=== PATIENT | female | born 1975 | race Caucasian/White ===

== ENCOUNTER 2018-07-17 16:10 | Inpatient (IN) | payer SELFPAY ==
[~2018-07-17] VITALS: Ht 165.1 cm; Wt 107.7 kg
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
--- NOTE | 2018-07-17 16:43 | NUR ---
ERP DR. MOODY AT BEDSIDE.
--- NOTE | 2018-07-17 17:04 | NUR ---
PT RESTING ON GURNEY. NADN. ROBLERO.
--- NOTE | 2018-07-17 17:44 | NUR ---
REPORT GIVEN TO ANTONIO DON RN. ALL QUESTIONS ANSWERED. AWAITING PT TRANSPORT.
[2018-07-17] MEDS ORDERED: LABETALOL 5MG/ML, 20ML IVPush PRN (18:00)
[2018-07-17] MEDS ORDERED: ONDANSETRON 2MG/ML, 2ML IVPush PRN (18:00)
[2018-07-17] MEDS ORDERED: LORazepam 2 MG/ML, 1ML IV PRN ×3 (18:00)
[2018-07-17] MEDS ORDERED: morphine SULFATE 10 MG/ML, 1ML IVPush PRN (18:00)
[2018-07-17] MEDS ORDERED: LORazepam 1MG TABLET PO PRN ×3 (18:00)
[2018-07-17] MEDS ORDERED: LORazepam 0.5MG TABLET PO PRN (18:00)
--- NOTE | 2018-07-17 18:21 | NUR ---
PT RESTING ON FERNANDO. VSS. AWARE OF POC FOR ADMIT.
[2018-07-17 18:41] LABS: BASOPHILS # (AUTO) 0.18 x10^3/uL (0-0.1); BASOPHILS % (AUTO) 2 % (0-1); EOSINOPHILS # (AUTO) 0.06 x10^3/uL (0-0.4); EOSINOPHILS % (AUTO) 1 % (1-7); LYMPHOCYTES # (AUTO) 1.51 x10^3/uL (1-3.4); LYMPHOCYTES % (AUTO) 16 % (22-44); MD NO; MEAN CORPUSCULAR HEMOGLOBIN 35.8 pg (27.0-34.8); MEAN CORPUSCULAR HGB CONC 34.7 g/dL (32.4-35.8); MEAN CORPUSCULAR VOLUME 103.2 fL (80-100); MEAN PLATELET VOLUME 8.3 fL (7.4-10.4); MONOCYTES % (AUTO) 9 % (2-9); NEUTROPHILS # (AUTO) 6.74 x10^3/uL (1.8-6.8); NEUTROPHILS % (AUTO) 73 % (42-75); PLATELET COUNT 193 x10^3/uL (130-400); RED CELL DISTRIBUTION WIDTH 16.3 % (9.6-15.2)
[2018-07-17 18:45] VITALS: BP 121/81
[2018-07-17 19:23] LABS: HCG UR SG 1.083 (1.003-1.030)
[2018-07-17] MEDS: OXYcodone IR 5MG TABLET PO PRN (20:42)
[2018-07-17] MEDS: THIAMINE 100MG TABLET PO SCH (20:43)
[2018-07-18 02:25] VITALS: BP 108/68
[2018-07-18] MEDS: OXYcodone IR 5MG TABLET PO PRN ×3 (03:58→21:13)
[2018-07-18 05:06] LABS: ALANINE AMINOTRANSFERASE 64 U/L (12-78); ANION GAP 9 mmol/L (5-15); CALCIUM 7.7 mg/dL (8.5-10.1); CHLORIDE 99 mmol/L (98-107)
[2018-07-18 05:09] LABS: ALKALINE PHOSPHATASE 295 U/L (45-117); BILIRUBIN,TOTAL 11.5 mg/dL (0.2-1.0); CREATININE 0.59 mg/dL (0.55-1.02); TOTAL PROTEIN 5.3 g/dL (6.4-8.2)
[2018-07-18 05:10] LABS: BASOPHILS # (AUTO) 0.03 x10^3/uL (0-0.1); BASOPHILS % (AUTO) 0 % (0-1); EOSINOPHILS # (AUTO) 0.16 x10^3/uL (0-0.4); EOSINOPHILS % (AUTO) 2 % (1-7); LYMPHOCYTES # (AUTO) 1.68 x10^3/uL (1-3.4); LYMPHOCYTES % (AUTO) 23 % (22-44); MD NO; MEAN CORPUSCULAR HGB CONC 34.1 g/dL (32.4-35.8); MEAN CORPUSCULAR VOLUME 102.6 fL (80-100); MEAN PLATELET VOLUME 8.4 fL (7.4-10.4); MONOCYTES # (AUTO) 0.69 x10^3/uL (0.2-0.8); MONOCYTES % (AUTO) 9 % (2-9); NEUTROPHILS # (AUTO) 4.91 x10^3/uL (1.8-6.8); NEUTROPHILS % (AUTO) 66 % (42-75); PLATELET COUNT 175 x10^3/uL (130-400); RED BLOOD COUNT 3.65 x10^6/uL (3.82-5.3); RED CELL DISTRIBUTION WIDTH 16.1 % (9.6-15.2)
[2018-07-18] MEDS ORDERED: POTASSIUM CHLORIDE 40 MEQ in SODIUM CHLORIDE 0.9% 500 ML IV ONE (07:00)
[2018-07-18 07:01] VITALS: BP 106/69
[2018-07-18] MEDS: THIAMINE 100MG TABLET PO SCH ×2 (09:57→21:13)
[2018-07-18] MEDS: MULTIVITAMIN 1 TABLET PO SCH (09:57)
[2018-07-18] MEDS: FOLIC ACID 1 MG TABLET PO SCH (09:57)
[2018-07-18 13:53] VITALS: BP 114/75
[2018-07-18 19:25] VITALS: BP 107/70
[2018-07-19 00:18] VITALS: BP 100/64
[2018-07-19 05:51] LABS: ALBUMIN 2.1 g/dL (3.4-5.0); CHLORIDE 100 mmol/L (98-107)
[2018-07-19 05:55] LABS: ALANINE AMINOTRANSFERASE 58 U/L (12-78); ALKALINE PHOSPHATASE 285 U/L (45-117); ANION GAP 5 mmol/L (5-15); BILIRUBIN,TOTAL 11.5 mg/dL (0.2-1.0); CALCIUM 7.6 mg/dL (8.5-10.1); CREATININE 0.48 mg/dL (0.55-1.02); TOTAL PROTEIN 5.5 g/dL (6.4-8.2)
[2018-07-19] MEDS: MULTIVITAMIN 1 TABLET PO SCH (08:42)
[2018-07-19] MEDS: FOLIC ACID 1 MG TABLET PO SCH (08:42)
[2018-07-19] MEDS: THIAMINE 100MG TABLET PO SCH ×2 (08:42→21:02)
[2018-07-19 15:04] VITALS: BP 121/77
[2018-07-19 18:25] VITALS: BP 129/76
[2018-07-19] MEDS ORDERED: SODIUM CHLORIDE 1 GM TABLET PO SCH (21:00)
[2018-07-19] MEDS: OXYcodone IR 5MG TABLET PO PRN (21:02)
[2018-07-20 00:15] VITALS: BP 118/73
[2018-07-20 05:34] LABS: ALBUMIN 2.1 g/dL (3.4-5.0); ANION GAP 8 mmol/L (5-15); CALCIUM 7.9 mg/dL (8.5-10.1); CHLORIDE 99 mmol/L (98-107)
[2018-07-20 05:38] LABS: ALANINE AMINOTRANSFERASE 61 U/L (12-78); ALKALINE PHOSPHATASE 313 U/L (45-117); BILIRUBIN,TOTAL 11.8 mg/dL (0.2-1.0); CREATININE 0.45 mg/dL (0.55-1.02); TOTAL PROTEIN 5.9 g/dL (6.4-8.2)
[2018-07-20 07:30] VITALS: BP 110/70
[2018-07-20] MEDS: FOLIC ACID 1 MG TABLET PO SCH (08:39)
[2018-07-20] MEDS: THIAMINE 100MG TABLET PO SCH (08:39)
[2018-07-20] MEDS: MULTIVITAMIN 1 TABLET PO SCH (08:39)
[2018-07-20] MEDS ORDERED: SODIUM CHLORIDE 1 GM TABLET PO SCH (09:00)
[2018-07-20] MEDS ORDERED: SODI1TAB PO (11:25)
[2018-07-20] MEDS ORDERED: THIA100T67 PO (11:25)
[2018-07-20] MEDS ORDERED: FOLI-17 PO (11:25)
[2018-07-20] MEDS ORDERED: MULT1TAB60 PO (11:25)
[2018-07-20 12:33] LABS: PROTHROMBIN TIME 14.6 Seconds (9.6-11.5)
[2018-07-20 12:34] LABS: INTERNATIONAL NORMALIZED RATIO 1.41 (0.93-1.1)
== END 2018-07-20 14:31 | disposition home or self-care (01) | DRG 433 ==
LOC: ED 16:49 → EDIP 16:55 → 3NE 18:35
PROVIDERS: ADMIT Internal Medicine; ATTEND Internal Medicine
DX: K70.10 Alcoholic hepatitis without ascites (principal); E87.1 Hypo-osmolality and hyponatremia; E87.6 Hypokalemia; K76.0 Fatty (change of) liver, not elsewhere classified; F10.20 Alcohol dependence, uncomplicated; Z98.82 Breast implant status
CPT/HCPCS: 36415; 74181; 80053; 81025; 84703; 85025; 85610; 86704; 86706; 86708; 86803; 87340; G0378; J3480; J7040

== ENCOUNTER 2019-07-06 20:53 | Inpatient (IN) | payer BC, OTHER ==
[~2019-07-06] VITALS: Ht 165.1 cm; Wt 96.0 kg
[~2019-07-06 20:53] MED LIST: FOLI-17 PO; MULT1TAB60 PO; SODI1TAB PO; THIA100T67 PO
--- NOTE | 2019-07-06 21:14 | NUR ---
ASSUMED CARE OF PT. PT TX [facility] HERNÁNDEZ FOR PANCREATITIS/CHOLEDOCHOLITHIASIS/CHOLECYSTITIS. BRIDGET MCCULLOUGH IN ROOM FOR EVL. POC PENDING.
[2019-07-06] MEDS ORDERED: PLEASE ENTER HEIGHT MC SCH (21:30)
[2019-07-06] MEDS ORDERED: MORPHINE SULFATE 4 MG/ML, 1ML IVPush PRN (21:30)
[2019-07-06] MEDS ORDERED: ONDANSETRON 2MG/ML, 2ML ONE (21:30)
[2019-07-06] MEDS ORDERED: MORPHINE SULFATE 4 MG/ML, 1ML ONE (21:30)
[2019-07-06] MEDS ORDERED: ONDANSETRON 2MG/ML, 2ML IVPush ONE (21:30)
[2019-07-06] MEDS ORDERED: SODIUM CHLORIDE FLUSH 10ML SYR IVF ONE (21:30)
[2019-07-06 21:43] LABS: BASOPHILS # (AUTO) 0.03 x10^3/uL (0-0.1); BASOPHILS % (AUTO) 0 % (0-1); EOSINOPHILS # (AUTO) 0.01 x10^3/uL (0-0.4); EOSINOPHILS % (AUTO) 0 % (1-7); LYMPHOCYTES # (AUTO) 1.52 x10^3/uL (1-3.4); LYMPHOCYTES % (AUTO) 12 % (22-44); MD NO; MEAN CORPUSCULAR HEMOGLOBIN 34.3 pg (27.0-34.8); MEAN CORPUSCULAR VOLUME 100.8 fL (80-100); MEAN PLATELET VOLUME 8.1 fL (7.4-10.4); MONOCYTES # (AUTO) 0.28 x10^3/uL (0.2-0.8); MONOCYTES % (AUTO) 2 % (2-9); NEUTROPHILS # (AUTO) 10.63 x10^3/uL (1.8-6.8); NEUTROPHILS % (AUTO) 85 % (42-75); PLATELET COUNT 229 x10^3/uL (130-400); RED CELL DISTRIBUTION WIDTH 14.6 % (9.6-15.2)
--- NOTE | 2019-07-06 21:54 | NUR ---
MEDS PER JUL. LAB AT BEDSIDE FOR BLOOD CX. PLAN FOR ABX AFTER. UA SENT.
[2019-07-06 21:55] LABS: ALANINE AMINOTRANSFERASE 59 U/L (12-78); ALBUMIN 2.8 g/dL (3.4-5.0); ANION GAP 7 mmol/L (5-15); CALCIUM 8.1 mg/dL (8.5-10.1); CHLORIDE 110 mmol/L (98-107); CREATININE 0.69 mg/dL (0.55-1.02)
[2019-07-06 21:57] LABS: ALKALINE PHOSPHATASE 124 U/L (45-117); BILIRUBIN,TOTAL 5.3 mg/dL (0.2-1.0); TOTAL PROTEIN 7.1 g/dL (6.4-8.2)
[2019-07-06] MEDS ORDERED: PIPERACILLIN/TAZO/PMX 3.375GM 50 ML IV ONE (22:00)
[2019-07-06 22:03] LABS: MICROSCOPIC INDICATED
[2019-07-06] MEDS ORDERED: PIPERACILLIN/TAZO/PMX 3.375GM 50 ML ONE (22:08)
[2019-07-06 22:14] LABS: CULTURE INDICATED? NO
--- NOTE | 2019-07-06 22:30 | NUR ---
pain improved nausea still there will notify provider. as
--- NOTE | 2019-07-06 22:39 | NUR ---
report to yeny higginbotham. as
[2019-07-07 00:28] VITALS: BP 136/89
[2019-07-07] MEDS ORDERED: ONDANSETRON 2MG/ML, 2ML IVPush PRN (00:30)
[2019-07-07] MEDS ORDERED: BISACODYL 10 MG SUPP PR PRN (00:30)
[2019-07-07] MEDS: PROMETHAZINE 25 MG/ML, 1ML IM PRN ×2 (00:37→05:30)
[2019-07-07] MEDS: LACTATED RINGERS 1,000 ML IV SCH ×4 (00:37→20:38)
[2019-07-07] MEDS: morphine SULFATE 10 MG/ML, 1ML IVPush PRN ×3 (00:49→21:31)
[2019-07-07] MEDS: PIPERACILLIN/TAZO/PMX 3.375GM 50 ML IV SCH ×4 (04:17→23:00)
[2019-07-07 05:53] LABS: ANION GAP 6 mmol/L (5-15); BASOPHILS # (AUTO) 0.03 x10^3/uL (0-0.1); BASOPHILS % (AUTO) 0 % (0-1); CALCIUM 8.2 mg/dL (8.5-10.1); CHLORIDE 109 mmol/L (98-107); EOSINOPHILS # (AUTO) 0.05 x10^3/uL (0-0.4); EOSINOPHILS % (AUTO) 0 % (1-7); LYMPHOCYTES # (AUTO) 1.65 x10^3/uL (1-3.4); LYMPHOCYTES % (AUTO) 14 % (22-44); MD NO; MEAN CORPUSCULAR HEMOGLOBIN 34.5 pg (27.0-34.8); MEAN CORPUSCULAR HGB CONC 33.7 g/dL (32.4-35.8); MEAN CORPUSCULAR VOLUME 102.4 fL (80-100); MEAN PLATELET VOLUME 7.8 fL (7.4-10.4); MONOCYTES # (AUTO) 0.43 x10^3/uL (0.2-0.8); MONOCYTES % (AUTO) 4 % (2-9); NEUTROPHILS # (AUTO) 9.35 x10^3/uL (1.8-6.8); NEUTROPHILS % (AUTO) 81 % (42-75); PLATELET COUNT 203 x10^3/uL (130-400); RED BLOOD COUNT 4.24 x10^6/uL (3.82-5.3); RED CELL DISTRIBUTION WIDTH 14.5 % (9.6-15.2)
[2019-07-07 07:31] VITALS: BP 107/72
[2019-07-07] MEDS ORDERED: CALCIUM GLUCONATE 4.6 MEQ in SODIUM CHLORIDE 0.9% 100 ML IV ONE (08:30)
[2019-07-07 10:34] LABS: INTERNATIONAL NORMALIZED RATIO 1.16 (0.93-1.1); PROTHROMBIN TIME 12.3 Seconds (9.6-11.5)
[2019-07-07 13:33] VITALS: BP 102/65
[2019-07-07 19:26] VITALS: BP 115/72
[2019-07-07] MEDS ORDERED: MORPHINE SULFATE 4 MG/ML, 1ML ONE (21:29)
[2019-07-08] MEDS: LACTATED RINGERS 1,000 ML IV SCH ×4 (01:58→22:03)
[2019-07-08 02:00] VITALS: BP 106/71
[2019-07-08] MEDS: morphine SULFATE 10 MG/ML, 1ML IVPush PRN ×2 (02:07→21:12)
[2019-07-08 04:49] LABS: MEAN CORPUSCULAR HEMOGLOBIN 34.6 pg (27.0-34.8); MEAN CORPUSCULAR HGB CONC 33.9 g/dL (32.4-35.8); PLATELET COUNT 154 x10^3/uL (130-400); RED BLOOD COUNT 3.78 x10^6/uL (3.82-5.3); RED CELL DISTRIBUTION WIDTH 14.4 % (9.6-15.2)
[2019-07-08 04:55] LABS: ALBUMIN 2.2 g/dL (3.4-5.0); ANION GAP 6 mmol/L (5-15); CALCIUM 8.2 mg/dL (8.5-10.1); CHLORIDE 110 mmol/L (98-107)
[2019-07-08] MEDS: PIPERACILLIN/TAZO/PMX 3.375GM 50 ML IV SCH ×4 (04:56→23:20)
[2019-07-08 04:58] LABS: BILIRUBIN, DIRECT 3.2 mg/dL (0.1-0.2); BILIRUBIN,INDIRECT 1.3 mg/dL (0.0-2.0); BILIRUBIN,TOTAL 4.5 mg/dL (0.2-1.0); CREATININE 0.65 mg/dL (0.55-1.02)
[2019-07-08 05:42] LABS: BASOPHILS % (AUTO) 0 % (0-1); EOSINOPHILS # (AUTO) 0.16 x10^3/uL (0-0.4); EOSINOPHILS % (AUTO) 2 % (1-7); LYMPHOCYTES # (AUTO) 1.87 x10^3/uL (1-3.4); LYMPHOCYTES % (AUTO) 22 % (22-44); MD SCAN; MONOCYTES % (AUTO) 5 % (2-9); NEUTROPHILS # (AUTO) 6.16 x10^3/uL (1.8-6.8); NEUTROPHILS % (AUTO) 72 % (42-75)
[2019-07-08 07:15] VITALS: BP 108/71
[2019-07-08] MEDS ORDERED: MAGNESIUM SULFATE PMX 2GM/50ML 50 ML IV ONE (08:30)
[2019-07-08] MEDS ORDERED: CALCIUM GLUCONATE 4.6 MEQ in SODIUM CHLORIDE 0.9% 100 ML IV ONE (08:30)
[2019-07-08 12:56] VITALS: BP 109/73
[2019-07-08 21:01] VITALS: BP 120/78
[2019-07-09] MEDS: morphine SULFATE 10 MG/ML, 1ML IVPush PRN ×5 (00:55→23:49)
[2019-07-09 01:19] VITALS: BP 119/73
[2019-07-09] MEDS: LACTATED RINGERS 1,000 ML IV SCH ×4 (03:27→21:18)
[2019-07-09] MEDS: PIPERACILLIN/TAZO/PMX 3.375GM 50 ML IV SCH ×4 (05:14→23:35)
[2019-07-09 05:24] LABS: BASOPHILS # (AUTO) 0.04 x10^3/uL (0-0.1); BASOPHILS % (AUTO) 1 % (0-1); EOSINOPHILS # (AUTO) 0.19 x10^3/uL (0-0.4); EOSINOPHILS % (AUTO) 3 % (1-7); LYMPHOCYTES # (AUTO) 1.95 x10^3/uL (1-3.4); LYMPHOCYTES % (AUTO) 30 % (22-44); MD NO; MEAN CORPUSCULAR HEMOGLOBIN 34.8 pg (27.0-34.8); MEAN CORPUSCULAR HGB CONC 34.2 g/dL (32.4-35.8); MEAN CORPUSCULAR VOLUME 101.6 fL (80-100); MEAN PLATELET VOLUME 8.2 fL (7.4-10.4); MONOCYTES # (AUTO) 0.43 x10^3/uL (0.2-0.8); MONOCYTES % (AUTO) 7 % (2-9); NEUTROPHILS % (AUTO) 60 % (42-75); PLATELET COUNT 118 x10^3/uL (130-400); RED BLOOD COUNT 3.42 x10^6/uL (3.82-5.3); RED CELL DISTRIBUTION WIDTH 13.5 % (9.6-15.2)
[2019-07-09 05:37] LABS: CHLORIDE 108 mmol/L (98-107)
[2019-07-09 05:44] LABS: ALANINE AMINOTRANSFERASE 33 U/L (12-78); ALKALINE PHOSPHATASE 78 U/L (45-117); ANION GAP 6 mmol/L (5-15); BILIRUBIN,TOTAL 4.2 mg/dL (0.2-1.0); CALCIUM 7.7 mg/dL (8.5-10.1); CREATININE 0.56 mg/dL (0.55-1.02)
[2019-07-09] MEDS ORDERED: CALCIUM GLUCONATE 4.6 MEQ in SODIUM CHLORIDE 0.9% 100 ML IV ONE (07:30)
[2019-07-09 07:58] VITALS: BP 137/86
[2019-07-09 08:21] LABS: HCG UR SG 1.024 (1.003-1.030)
[2019-07-09] MEDS ORDERED: DEXAMETHASONE 4 MG/ML, 1ML ONE ×3 (10:37→15:03)
[2019-07-09] MEDS ORDERED: SUGAMMADEX 200 MG/2 ML IVPush ONE (10:37)
[2019-07-09] MEDS ORDERED: KETOROLAC 30 MG/1 ML ONE (10:37)
[2019-07-09] MEDS ORDERED: ONDANSETRON 2MG/ML, 2ML ONE (10:37)
[2019-07-09] MEDS ORDERED: EPINEPHRINE 1 MG/ML, 1ML ONE (14:54)
[2019-07-09] MEDS ORDERED: BUPIVACAINE/PF 0.5% ONE (14:54)
[2019-07-09] MEDS ORDERED: MIDAZOLAM 1 MG/ML, 2ML ONE (15:02)
[2019-07-09] MEDS ORDERED: FENTANYL PF 250 MCG/5ML ONE (15:03)
[2019-07-09] MEDS ORDERED: PROPOFOL 10 MG/ML, 20ML ONE (15:04)
[2019-07-09] MEDS ORDERED: ROCURONIUM 10MG/ML,5ML ONE (15:04)
[2019-07-09] MEDS ORDERED: SUCCINYLCHOLINE 20 MG/ML, 10ML ONE (15:04)
[2019-07-09] MEDS ORDERED: PIPERACILLIN/TAZO/PMX 3.375GM 50 ML ONE (15:27)
[2019-07-09] MEDS ORDERED: MEPERIDINE/PF 25MG/ML,1ML IVPush PRN (15:30)
[2019-07-09] MEDS ORDERED: PROMETHAZINE 25 MG/ML, 1ML IV PRN (15:30)
[2019-07-09] MEDS ORDERED: ONDANSETRON ODT 8 MG PO PRN (15:30)
[2019-07-09] MEDS ORDERED: MIDAZOLAM 1 MG/ML, 2ML IV PRN (15:30)
[2019-07-09] MEDS ORDERED: HALOPERIDOL 5 MG/ML IV PRN (15:30)
[2019-07-09] MEDS ORDERED: DIAZEPAM 5 MG/ML, 2ML IVPush PRN (15:30)
[2019-07-09] MEDS ORDERED: hydrALAzine 20 MG/ML, 1ML IV PRN (15:30)
[2019-07-09] MEDS ORDERED: PROMETHAZINE 12.5 MG SUPP PR PRN (15:30)
[2019-07-09] MEDS ORDERED: OXYcodone 5 MG/5 ML ORAL.SOL UDC PO PRN (15:30)
[2019-07-09] MEDS ORDERED: ONDANSETRON 2MG/ML, 2ML IV PRN (15:30)
[2019-07-09] MEDS ORDERED: ALBUTEROL SULFATE 2.5 MG/3 ML NPPB PRN (15:30)
[2019-07-09] MEDS ORDERED: EPHEDRINE 50 MG/ML, 1ML IVPush PRN (15:30)
[2019-07-09] MEDS ORDERED: LABETALOL 5MG/ML, 20ML IV PRN (15:30)
[2019-07-09] MEDS ORDERED: HYDROmorphone 2 MG/ML, 1ML IVPush PRN (15:30)
[2019-07-09] MEDS ORDERED: FENTANYL PF 100 MCG/2ML ONE ×2 (15:49→17:10)
[2019-07-09] MEDS ORDERED: OXYcodone 5 MG/5 ML ORAL.SOL UDC ONE (17:10)
[2019-07-09] MEDS: FENTANYL PF 100 MCG/2ML IV PRN ×2 (17:12→17:25)
[2019-07-09 19:02] VITALS: BP 133/85
[2019-07-09] MEDS: HYDROcodone/APAP 5/325 TABLET PO PRN (21:19)
[2019-07-10] VITALS: BP 124/81
[2019-07-10] MEDS: LACTATED RINGERS 1,000 ML IV SCH ×2 (02:12→07:41)
[2019-07-10] MEDS: HYDROcodone/APAP 5/325 TABLET PO PRN ×4 (03:24→16:09)
[2019-07-10 03:42] VITALS: BP 121/80
[2019-07-10] MEDS: PIPERACILLIN/TAZO/PMX 3.375GM 50 ML IV SCH ×4 (05:16→22:31)
[2019-07-10 05:33] LABS: ALBUMIN 2.3 g/dL (3.4-5.0); ANION GAP 8 mmol/L (5-15); CALCIUM 8.3 mg/dL (8.5-10.1); CHLORIDE 105 mmol/L (98-107)
[2019-07-10 05:34] LABS: CREATININE 0.51 mg/dL (0.55-1.02)
[2019-07-10 05:35] LABS: BASOPHILS # (AUTO) 0.07 x10^3/uL (0-0.1); BASOPHILS % (AUTO) 1 % (0-1); EOSINOPHILS % (AUTO) 0 % (1-7); LYMPHOCYTES # (AUTO) 0.87 x10^3/uL (1-3.4); LYMPHOCYTES % (AUTO) 11 % (22-44); MD NO; MEAN CORPUSCULAR HEMOGLOBIN 34.6 pg (27.0-34.8); MEAN CORPUSCULAR HGB CONC 34.1 g/dL (32.4-35.8); MEAN CORPUSCULAR VOLUME 101.6 fL (80-100); MONOCYTES # (AUTO) 0.27 x10^3/uL (0.2-0.8); MONOCYTES % (AUTO) 4 % (2-9); NEUTROPHILS # (AUTO) 6.52 x10^3/uL (1.8-6.8); NEUTROPHILS % (AUTO) 84 % (42-75); PLATELET COUNT 176 x10^3/uL (130-400); RED BLOOD COUNT 3.94 x10^6/uL (3.82-5.3); RED CELL DISTRIBUTION WIDTH 13.4 % (9.6-15.2)
[2019-07-10 07:56] VITALS: BP 100/64
[2019-07-10] MEDS ORDERED: MAGNESIUM SULFATE PMX 2GM/50ML 50 ML IV ONE (08:00)
[2019-07-10] MEDS ORDERED: CALCIUM GLUCONATE 4.6 MEQ in SODIUM CHLORIDE 0.9% 100 ML IV ONE (08:00)
[2019-07-10] MEDS: morphine SULFATE 10 MG/ML, 1ML IVPush PRN (10:08)
[2019-07-10 14:32] VITALS: BP 113/72
[2019-07-10 20:53] VITALS: BP 116/75
[2019-07-10] MEDS: OXYcodone/APAP 5/325MG TABLET PO PRN (21:20)
[2019-07-10] MEDS ORDERED: CALCIUM CARBONATE 500 MG TAB.CHEW PO PRN (21:30)
[2019-07-10] MEDS ORDERED: TEMAZEPAM 15 MG CAPSULE ONE (22:29)
[2019-07-10] MEDS ORDERED: TEMAZEPAM 15 MG CAPSULE PO ONE (22:30)
[2019-07-11 01:53] VITALS: BP 95/60
[2019-07-11] MEDS: OXYcodone/APAP 5/325MG TABLET PO PRN ×3 (02:03→12:49)
[2019-07-11] MEDS: PIPERACILLIN/TAZO/PMX 3.375GM 50 ML IV SCH ×2 (05:00→11:00)
[2019-07-11 05:28] LABS: BASOPHILS # (AUTO) 0.04 x10^3/uL (0-0.1); BASOPHILS % (AUTO) 1 % (0-1); EOSINOPHILS # (AUTO) 0.26 x10^3/uL (0-0.4); EOSINOPHILS % (AUTO) 3 % (1-7); LYMPHOCYTES # (AUTO) 2.49 x10^3/uL (1-3.4); LYMPHOCYTES % (AUTO) 33 % (22-44); MD NO; MEAN CORPUSCULAR HEMOGLOBIN 34.1 pg (27.0-34.8); MEAN CORPUSCULAR HGB CONC 33.9 g/dL (32.4-35.8); MEAN CORPUSCULAR VOLUME 100.7 fL (80-100); MEAN PLATELET VOLUME 8.1 fL (7.4-10.4); MONOCYTES % (AUTO) 7 % (2-9); NEUTROPHILS % (AUTO) 56 % (42-75); PLATELET COUNT 189 x10^3/uL (130-400); RED BLOOD COUNT 3.49 x10^6/uL (3.82-5.3); RED CELL DISTRIBUTION WIDTH 13.4 % (9.6-15.2)
[2019-07-11 05:37] LABS: ALBUMIN 2.2 g/dL (3.4-5.0); ANION GAP 5 mmol/L (5-15); CHLORIDE 105 mmol/L (98-107)
[2019-07-11 05:38] LABS: CREATININE 0.63 mg/dL (0.55-1.02)
[2019-07-11] MEDS ORDERED: MAGNESIUM SULFATE PMX 2GM/50ML 50 ML IV ONE (07:00)
[2019-07-11] MEDS ORDERED: POTASSIUM CHLORIDE 20 MEQ in SODIUM CHLORIDE 0.9% 250 ML IV ONE (07:00)
[2019-07-11 07:24] VITALS: BP 114/73
[2019-07-11] MEDS: LACTATED RINGERS 1,000 ML IV SCH (10:15)
[2019-07-11 13:11] VITALS: BP 111/73
[2019-07-11] MEDS ORDERED: OXYC-302 PO (15:22)
[2019-07-11] MEDS ORDERED: DOCU-131 PO (15:23)
[2019-07-11] MEDS ORDERED: TEMAZEPAM 15 MG CAPSULE PO ONE (21:00)
== END 2019-07-11 15:45 | disposition home or self-care (01) | DRG 417 ==
LOC: ED 22:20 → 4NE 07-07 00:12 → ED 07-07 01:08 → DCLOUNGE 07-11 15:31
PROVIDERS: ADMIT Family Medicine; ATTEND Family Medicine
PROC: 0FT44ZZ Resection of Gallbladder, Percutaneous Endoscopic Approach (ICD-10-PCS; principal; 2019-07-09 16:30)
DX: K80.00 Calculus of gallbladder with acute cholecystitis without obstruction (principal); K85.10 Biliary acute pancreatitis without necrosis or infection; K83.09 Other cholangitis; D75.89 Other specified diseases of blood and blood-forming organs; K70.10 Alcoholic hepatitis without ascites; E66.9 Obesity, unspecified; Z68.35 Body mass index [BMI] 35.0-35.9, adult
CPT/HCPCS: 36415; 96374; 96375; 99285; S0020; 74181; 76700; 80048; 80053; 80069; 81001; 81025; 82247; 82248; 82607; 83605; 83690; 83735; 84703; 85025; 85610; 87040; 88304; G0378; J0171; J0610; J1100; J1885; J2250; J2405; J2543; J2550; J2704; J3010; J0330; J2270; J3475; J7120

== ENCOUNTER 2020-03-11 11:16 | Inpatient (IN) | payer BC, OTHER ==
[~2020-03-11] VITALS: Ht 165.1 cm; Wt 101.5 kg
[~2020-03-11 11:16] MED LIST changes: +DOCU-131 PO; +MULT-449 PO; -MULT1TAB60 PO; +OXYC-302 PO
[2020-03-11] MEDS ORDERED: SODIUM CHLORIDE FLUSH 10ML SYR IVF ONE (12:00)
[2020-03-11 12:53] LABS: MEAN CORPUSCULAR HEMOGLOBIN 31.7 pg (27.0-34.8); MEAN CORPUSCULAR HGB CONC 33.2 g/dL (32.4-35.8); MEAN PLATELET VOLUME 7.7 fL (7.4-10.4); PLATELET COUNT 283 x10^3/uL (130-400); RED BLOOD COUNT 3.35 x10^6/uL (3.82-5.3); RED CELL DISTRIBUTION WIDTH 19.6 % (9.6-15.2)
[2020-03-11 13:08] LABS: ALANINE AMINOTRANSFERASE 52 U/L (12-78); ALBUMIN 1.9 g/dL (3.4-5.0); ANION GAP 8 mmol/L (5-15); CALCIUM 7.7 mg/dL (8.5-10.1); CHLORIDE 89 mmol/L (98-107)
[2020-03-11 13:14] LABS: ALKALINE PHOSPHATASE 227 U/L (45-117)
[2020-03-11 13:17] LABS: CREATININE 1.41 mg/dL (0.55-1.02); TOTAL PROTEIN 4.9 g/dL (6.4-8.2)
[2020-03-11 13:21] LABS: BILIRUBIN,TOTAL 27.2 mg/dL (0.2-1.0)
[2020-03-11 13:26] LABS: MD YES
[2020-03-11 13:28] LABS: BAND#(MANUAL) 0.52 x10^3/uL; BANDS%(MANUAL) 2 % (0-7); EOS#(MANUAL) 0.26 x10^3/uL (0.0-0.4); EOS% (MANUAL) 1 % (1-7); LYMPH#(MANUAL) 4.92 x10^3/uL (1-3.4); LYMPHS% (MANUAL) 19 % (22-44); METAMYELOCYTES# (MANUAL) 0.26 x10^3/uL (0-0); METAMYELOCYTES% (MANUAL) 1 % (0-1); MONOS#(MANUAL) 1.55 x10^3/uL (0.3-2.7); MONOS% (MANUAL) 6 % (2-9); SEG#(MANUAL) 18.39 x10^3/uL (1.8-6.8); SEGS% (MANUAL) 71 % (42-75)
[2020-03-11 13:29] LABS: <PLATELET ESTIMATE> ADEQUATE; <PLT MORPHOLOGY> NORMAL PLT MORPH; ANISOCYTOSIS 1+; POLYCHROMASIA 1+
--- NOTE | 2020-03-11 14:00 | NUR ---
PATIENT TO ROOM FROM LOBBY AT THIS TIME.
[2020-03-11] MEDS ORDERED: CEFTRIAXONE PMX 1GM/50ML 50 ML ONE (14:58)
[2020-03-11 14:59] LABS: MICROSCOPIC INDICATED
[2020-03-11] MEDS ORDERED: SODIUM CHLORIDE 0.9% 1,000ML IVBOLUS ONE ×3 (15:00→20:30)
[2020-03-11] MEDS ORDERED: CEFTRIAXONE PMX 1GM/50ML 50 ML IV ONE (15:00)
--- NOTE | 2020-03-11 15:15 | NUR ---
PT TO CT
--- NOTE | 2020-03-11 15:25 | NUR ---
PT RETURNED FROM CT
[2020-03-11] MEDS ORDERED: OMNIPAQUE 350 MG/ML, 100ML BOTTLE ONE (15:28)
[2020-03-11 15:30] LABS: PROTHROMBIN TIME 19.5 Seconds (9.6-11.5)
[2020-03-11 15:31] LABS: INTERNATIONAL NORMALIZED RATIO 1.85 (0.93-1.1)
--- NOTE | 2020-03-11 15:58 | NUR ---
PT SITTING UPRIGHT ON GURNEY, WARM BLANKETS PROVIDED. PT DENIES ANY ADDITIONAL NEEDS AT THIS TIME. CALL LIGHT WITHIN REACH, FALL PRECAUTIONS IN PLACE. WILL CONTINUE TO MONITOR. NAD, VSS.
[2020-03-11] MEDS ORDERED: METRONIDAZOLE PMX 500MG/100ML 100 ML IV ONE (16:30)
[2020-03-11] MEDS ORDERED: METRONIDAZOLE PMX 500MG/100ML 100 ML ONE (16:38)
--- NOTE | 2020-03-11 16:53 | NUR ---
GI MD AT BEDSIDE
--- NOTE | 2020-03-11 17:08 | NUR ---
HOSPITALIST AT BEDSIDE. PT UP TO BATHROOM WITH THIS RN.
[2020-03-11] MEDS ORDERED: ONDANSETRON ODT 4 MG PO PRN (17:30)
[2020-03-11] MEDS ORDERED: ONDANSETRON 2MG/ML, 2ML IVPush PRN (17:30)
[2020-03-11] MEDS ORDERED: THIAMINE 200 MG, MVI ADULT 10 ML, FOLIC ACID 1 MG in D5%-0.9% NACL 1,000 ML IV SCH (17:30)
[2020-03-11] MEDS: METRONIDAZOLE PMX 500MG/100ML 100 ML IV SCH (17:50)
[2020-03-11] MEDS: CEFTRIAXONE PMX 1GM/50ML 50 ML IV SCH (17:51)
--- NOTE | 2020-03-11 18:07 | NUR ---
PT SITTING UPRIGHT ON GURNEY, WARM BLANKETS PROVIDED. PT UP TO BATHROOM WITH THIS RN. PT DENIES ANY ADDITIONAL NEEDS AT THIS TIME. CALL LIGHT WITHIN REACH, FALL PRECAUTIONS IN PLACE. WILL CONTINUE TO MONITOR. MARILU, VSS.
[2020-03-11 18:21] LABS: ANION GAP 10 mmol/L (5-15); CALCIUM 7.2 mg/dL (8.5-10.1); CHLORIDE 90 mmol/L (98-107)
[2020-03-11 18:31] LABS: CREATININE 1.21 mg/dL (0.55-1.02)
--- NOTE | 2020-03-11 18:55 | NUR ---
BEDSIDE REPORT TO GADIEL WELDON
--- NOTE | 2020-03-11 19:09 | NUR ---
REPORT RECEIVED FROM JEANCARLOS WELDON
--- NOTE | 2020-03-11 20:18 | NUR ---
PT BP TRENDING DOWN, 99/39 L ARM, 98/42 R ARM. [employer] NOTIFIED. PROVIDER STATED HE WOULD PLACE ORDERS.
--- NOTE | 2020-03-11 20:35 | NUR ---
APPLE JUICE AND SPRITE PROVIDED. PT RESTING COMFORTABLY.
--- NOTE | 2020-03-11 22:08 | NUR ---
PT RESTING IN [facility]. DENIES NEED AT THIS TIME
--- NOTE | 2020-03-11 22:55 | NUR ---
PT COMPLAINING ABOUT ITCHING. MARIAELENA QIU NOTIFIED. VERBAL ORDERS FOR BENADRYL 25 MG PO BID PRN FOR ITCHING GIVEN. ORDER REPEATED
[2020-03-11] MEDS ORDERED: DIPHENHYDRAMINE 25 MG CAPSULE ONE (23:09)
[2020-03-11] MEDS: DIPHENHYDRAMINE 25 MG CAPSULE PO PRN (23:12)
--- NOTE | 2020-03-11 23:15 | NUR ---
HOSPITAL BED REQUESTED
--- NOTE | 2020-03-11 23:46 | NUR ---
PT INDEPENDENT TO BATHROOM. NON SKID SOCKS ON
--- NOTE | 2020-03-12 00:42 | NUR ---
PT RESTING COMFORTABLY IN [facility], LIGHTS TURNED OFF PER PT REQUEST. WAITING FOR HOSPITAL BED, HOUSE KEEPING CALLED FOR BED AGAIN.
--- NOTE | 2020-03-12 01:45 | NUR ---
PT RESTING. NO NEEDS AT THIS TIME
--- NOTE | 2020-03-12 02:52 | NUR ---
PT RESTING COMFORTABLY. NO NEEDS
[2020-03-12] MEDS ORDERED: METRONIDAZOLE PMX 500MG/100ML 100 ML ONE ×2 (02:53→11:35)
[2020-03-12] MEDS: METRONIDAZOLE PMX 500MG/100ML 100 ML IV SCH ×3 (03:02→21:19)
--- NOTE | 2020-03-12 03:08 | NUR ---
PT TRANSFERED TO HOSPITAL BED
--- NOTE | 2020-03-12 03:21 | NUR ---
PT INDEP WITH STEADY GAIT TO RESTROOM. NON SKID SOCKS ON. DENIES ANY PAIN WITH URINATION
--- NOTE | 2020-03-12 04:08 | NUR ---
A&OX4, RESTING IN HOSPITAL BED
[2020-03-12 05:35] LABS: ALBUMIN 1.6 g/dL (3.4-5.0); ANION GAP 8 mmol/L (5-15); CHLORIDE 92 mmol/L (98-107)
[2020-03-12 05:39] LABS: MEAN CORPUSCULAR HEMOGLOBIN 32.9 pg (27.0-34.8); MEAN CORPUSCULAR HGB CONC 34.2 g/dL (32.4-35.8); MEAN PLATELET VOLUME 7.6 fL (7.4-10.4); PLATELET COUNT 142 x10^3/uL (130-400); RED BLOOD COUNT 2.82 x10^6/uL (3.82-5.3); RED CELL DISTRIBUTION WIDTH 19.6 % (9.6-15.2)
[2020-03-12 05:49] LABS: ALANINE AMINOTRANSFERASE 44 U/L (12-78); ALKALINE PHOSPHATASE 191 U/L (45-117)
[2020-03-12 06:01] LABS: CREATININE 1.13 mg/dL (0.55-1.02)
[2020-03-12 06:03] LABS: TOTAL PROTEIN 4.3 g/dL (6.4-8.2)
[2020-03-12 06:04] LABS: BILIRUBIN,TOTAL 22.7 mg/dL (0.2-1.0)
[2020-03-12 06:19] LABS: MD YES
[2020-03-12 06:21] LABS: BAND#(MANUAL) 0.15 x10^3/uL; BANDS%(MANUAL) 1 % (0-7); BASOS#(MANUAL) 0.15 x10^3/uL (0-0.1); BASOS% (MANUAL) 1 % (0-1); EOS#(MANUAL) 0.15 x10^3/uL (0.0-0.4); EOS% (MANUAL) 1 % (1-7); LYMPH#(MANUAL) 1.38 x10^3/uL (1-3.4); LYMPHS% (MANUAL) 9 % (22-44); METAMYELOCYTES# (MANUAL) 0.46 x10^3/uL (0-0); METAMYELOCYTES% (MANUAL) 3 % (0-1); MONOS#(MANUAL) 1.22 x10^3/uL (0.3-2.7); MONOS% (MANUAL) 8 % (2-9); MYELOCYTES# (MANUAL) 0.61 x10^3/uL (0-0); MYELOCYTES% (MANUAL) 4 % (0-0); SEG#(MANUAL) 11.17 x10^3/uL (1.8-6.8); SEGS% (MANUAL) 73 % (42-75)
[2020-03-12 06:23] LABS: <PLATELET ESTIMATE> ADEQUATE; <PLT MORPHOLOGY> NORMAL PLT MORPH; ANISOCYTOSIS 1+
--- NOTE | 2020-03-12 06:51 | NUR ---
REPORT GIVEN TO JANET WELDON
[2020-03-12] MEDS ORDERED: PANTOPRAZOLE 40 MG IV ONE (07:07)
[2020-03-12] MEDS: PANTOPRAZOLE 40 MG IV IVPush SCH (07:13)
--- NOTE | 2020-03-12 07:48 | NUR ---
PT BP LOW THIS AM, SEE CHARTED. HOSPITALIST CALLED AND MADE AWARE. ORDERS GIVEN BY TELEPHONE, HOSPITALIST TO COME SEE PT THIS AM. PT IS NONSYMPTOMATIC AT THIS TIME. PT STATED SHE MAY HAVE TO VOID LATER. BEDSIDE COMMODE PLACED IN PT ROOM. WILL CONTINUE TO MONITOR.
[2020-03-12] MEDS ORDERED: SODIUM CHLORIDE 0.9%, 500ML IVBOLUS ONE (08:00)
--- NOTE | 2020-03-12 09:09 | NUR ---
PT ABLE TO AMBULATE WITH ASSIST IN HALLWAY TO BATHROOM. PT DID NOT WANT TO USE BEDSIDE COMMODE.
[2020-03-12 09:18] LABS: ANION GAP 13 mmol/L (5-15); CALCIUM 7.2 mg/dL (8.5-10.1); CHLORIDE 103 mmol/L (98-107)
[2020-03-12 09:31] LABS: CREATININE 1.11 mg/dL (0.55-1.02)
--- NOTE | 2020-03-12 11:40 | NUR ---
PT RESTING CALMLY IN BED WITH EYES CLOSED, DOZING OFF AND ON. ORDERED ABX HUNG. WILL CONTINUE TO MONITOR.
[2020-03-12 12:26] LABS: ANION GAP 10 mmol/L (5-15); CALCIUM 7.1 mg/dL (8.5-10.1); CHLORIDE 95 mmol/L (98-107)
[2020-03-12 12:28] LABS: CREATININE 1.11 mg/dL (0.55-1.02)
[2020-03-12] MEDS ORDERED: POTASSIUM CHLORIDE 20 MEQ, MAGNESIUM SULFATE 1 GM, FOLIC ACID 1 MG, THIAMINE 200 MG, MV... IV SCH (12:30)
--- NOTE | 2020-03-12 13:35 | NUR ---
PT SITTING UP ON EDGE OF BED, EATING LUNCH. PT DENIES ANY LIGHT HEADEDNESS, NAUSEA, AND IS NOT LETHAGIC. PT ABLE TO MOVE SELF IN BED.
[2020-03-12] MEDS ORDERED: CEFTRIAXONE PMX 1GM/50ML 50 ML ONE (15:10)
[2020-03-12] MEDS: CEFTRIAXONE PMX 1GM/50ML 50 ML IV SCH (15:15)
--- NOTE | 2020-03-12 15:32 | NUR ---
ABX HUNG ORDERED. PT CONTINUES TO REST WITH EYES CLOSED, DOZING OFF AND ON. PT EASILY AROUSABLE TO VOICE.
--- NOTE | 2020-03-12 16:24 | NUR ---
REPORT TO GWENDOLYN
[2020-03-12] MEDS ORDERED: THIAMINE 200 MG, MVI ADULT 10 ML, FOLIC ACID 1 MG in D5%-0.9% NACL 1,000 ML IV SCH (17:30)
[2020-03-12 17:40] VITALS: BP 104/65
[2020-03-12 20:17] VITALS: BP 98/62
[2020-03-12] MEDS: LORazepam 1MG TABLET PO PRN (21:20)
[2020-03-12] MEDS: DIPHENHYDRAMINE 25 MG CAPSULE PO PRN (21:20)
[2020-03-13 01:50] VITALS: BP 92/56
[2020-03-13] MEDS: METRONIDAZOLE PMX 500MG/100ML 100 ML IV SCH ×3 (03:19→20:06)
[2020-03-13 04:21] LABS: MEAN CORPUSCULAR HEMOGLOBIN 32.7 pg (27.0-34.8); MEAN PLATELET VOLUME 7.6 fL (7.4-10.4); PLATELET COUNT 148 x10^3/uL (130-400); RED BLOOD COUNT 2.59 x10^6/uL (3.82-5.3); RED CELL DISTRIBUTION WIDTH 18.3 % (9.6-15.2)
[2020-03-13 04:29] LABS: CHLORIDE 97 mmol/L (98-107)
[2020-03-13 04:36] LABS: ALANINE AMINOTRANSFERASE 41 U/L (12-78); ALBUMIN 1.5 g/dL (3.4-5.0); ALKALINE PHOSPHATASE 172 U/L (45-117); ANION GAP 7 mmol/L (5-15); CALCIUM 7.1 mg/dL (8.5-10.1)
[2020-03-13 04:45] LABS: CREATININE 1.16 mg/dL (0.55-1.02)
[2020-03-13 04:47] LABS: BILIRUBIN,TOTAL 22.9 mg/dL (0.2-1.0)
[2020-03-13 05:53] LABS: MD YES
[2020-03-13 05:55] LABS: BAND#(MANUAL) 0.57 x10^3/uL; BANDS%(MANUAL) 4 % (0-7); EOS#(MANUAL) 0.43 x10^3/uL (0.0-0.4); EOS% (MANUAL) 3 % (1-7); LYMPH#(MANUAL) 2.15 x10^3/uL (1-3.4); LYMPHS% (MANUAL) 15 % (22-44); METAMYELOCYTES# (MANUAL) 0.14 x10^3/uL (0-0); METAMYELOCYTES% (MANUAL) 1 % (0-1); MONOS#(MANUAL) 0.57 x10^3/uL (0.3-2.7); MONOS% (MANUAL) 4 % (2-9); MYELOCYTES# (MANUAL) 0.57 x10^3/uL (0-0); MYELOCYTES% (MANUAL) 4 % (0-0); SEG#(MANUAL) 9.87 x10^3/uL (1.8-6.8); SEGS% (MANUAL) 69 % (42-75)
[2020-03-13 05:56] LABS: ANISOCYTOSIS 1+
[2020-03-13 05:58] LABS: <PLATELET ESTIMATE> ADEQUATE; <PLT MORPHOLOGY> NORMAL PLT MORPH; OVALOCYTES 1+; SMUDGE CELLS 1+; TOXIC GRAN 1+
[2020-03-13 05:59] LABS: POLYCHROMASIA 1+
[2020-03-13 07:21] VITALS: BP 92/56
[2020-03-13] MEDS: PANTOPRAZOLE 40 MG IV IVPush SCH (07:53)
[2020-03-13 11:41] LABS: CLOSTRIDIUM DIFFICILE ANTIGEN NEGATIVE; CLOSTRIDIUM DIFFICILE TOXIN NEGATIVE (Negative)
[2020-03-13] MEDS ORDERED: POTASSIUM CHLORIDE 20 MEQ TAB.ER.PRT PO ONE (12:00)
[2020-03-13 12:15] VITALS: BP 90/49
[2020-03-13] MEDS: CEFTRIAXONE PMX 1GM/50ML 50 ML IV SCH (16:06)
[2020-03-13 18:35] VITALS: BP 107/67
[2020-03-13] MEDS: LORazepam 1MG TABLET PO PRN (20:06)
[2020-03-13] MEDS: DIPHENHYDRAMINE 25 MG CAPSULE PO PRN (20:06)
[2020-03-14] MEDS: METRONIDAZOLE PMX 500MG/100ML 100 ML IV SCH ×3 (02:18→20:24)
[2020-03-14 02:27] VITALS: BP 92/61
[2020-03-14 04:26] LABS: MEAN CORPUSCULAR HEMOGLOBIN 32.5 pg (27.0-34.8); MEAN PLATELET VOLUME 7.6 fL (7.4-10.4); PLATELET COUNT 149 x10^3/uL (130-400); RED CELL DISTRIBUTION WIDTH 18.4 % (9.6-15.2)
[2020-03-14 04:38] LABS: ALBUMIN 1.4 g/dL (3.4-5.0); ANION GAP 7 mmol/L (5-15); CALCIUM 6.8 mg/dL (8.5-10.1); CHLORIDE 97 mmol/L (98-107)
[2020-03-14 04:41] LABS: ALANINE AMINOTRANSFERASE 43 U/L (12-78); ALKALINE PHOSPHATASE 184 U/L (45-117)
[2020-03-14 04:53] LABS: CREATININE 1.12 mg/dL (0.55-1.02)
[2020-03-14 04:55] LABS: BILIRUBIN,TOTAL 22.4 mg/dL (0.2-1.0)
[2020-03-14 05:57] LABS: MD YES
[2020-03-14 05:58] LABS: EOS#(MANUAL) 0.61 x10^3/uL (0.0-0.4); EOS% (MANUAL) 4 % (1-7); LYMPH#(MANUAL) 1.37 x10^3/uL (1-3.4); LYMPHS% (MANUAL) 9 % (22-44); MONOS#(MANUAL) 0.91 x10^3/uL (0.3-2.7); MONOS% (MANUAL) 6 % (2-9); MYELOCYTES% (MANUAL) 2 % (0-0); SEG#(MANUAL) 12.01 x10^3/uL (1.8-6.8); SEGS% (MANUAL) 79 % (42-75)
[2020-03-14 05:59] LABS: <PLATELET ESTIMATE> ADEQUATE; <PLT MORPHOLOGY> NORMAL PLT MORPH; ANISOCYTOSIS 1+; OVALOCYTES 1+; POLYCHROMASIA 1+
[2020-03-14] MEDS: PANTOPRAZOLE 40MG TABLET PO SCH (06:06)
[2020-03-14 07:07] VITALS: BP 102/62
[2020-03-14 12:24] VITALS: BP 102/63
[2020-03-14] MEDS: CEFTRIAXONE PMX 1GM/50ML 50 ML IV SCH (16:26)
[2020-03-14 19:41] VITALS: BP 96/59
[2020-03-14] MEDS: DIPHENHYDRAMINE 25 MG CAPSULE PO PRN (20:28)
[2020-03-14] MEDS: LORazepam 1MG TABLET PO PRN (20:28)
[2020-03-15 02:14] VITALS: BP 104/63
[2020-03-15] MEDS: PANTOPRAZOLE 40MG TABLET PO SCH (04:48)
[2020-03-15] MEDS: METRONIDAZOLE PMX 500MG/100ML 100 ML IV SCH (04:48)
[2020-03-15 05:47] LABS: MEAN CORPUSCULAR HEMOGLOBIN 32.9 pg (27.0-34.8); MEAN CORPUSCULAR HGB CONC 34.1 g/dL (32.4-35.8); MEAN PLATELET VOLUME 7.7 fL (7.4-10.4); PLATELET COUNT 151 x10^3/uL (130-400); RED BLOOD COUNT 2.57 x10^6/uL (3.82-5.3); RED CELL DISTRIBUTION WIDTH 17.8 % (9.6-15.2)
[2020-03-15 05:54] LABS: ALBUMIN 1.4 g/dL (3.4-5.0); ANION GAP 7 mmol/L (5-15); CALCIUM 7.2 mg/dL (8.5-10.1); CHLORIDE 97 mmol/L (98-107)
[2020-03-15 05:57] LABS: ALANINE AMINOTRANSFERASE 40 U/L (12-78); ALKALINE PHOSPHATASE 206 U/L (45-117)
[2020-03-15 06:11] LABS: CREATININE 1.15 mg/dL (0.55-1.02); TOTAL PROTEIN 4.2 g/dL (6.4-8.2)
[2020-03-15 06:12] LABS: BILIRUBIN,TOTAL 21.6 mg/dL (0.2-1.0)
[2020-03-15 06:33] LABS: BAND#(MANUAL) 0.49 x10^3/uL; BANDS%(MANUAL) 3 % (0-7); LYMPH#(MANUAL) 2.11 x10^3/uL (1-3.4); LYMPHS% (MANUAL) 13 % (22-44); MD YES; MONOS#(MANUAL) 0.49 x10^3/uL (0.3-2.7); MONOS% (MANUAL) 3 % (2-9); SEG#(MANUAL) 12.31 x10^3/uL (1.8-6.8); SEGS% (MANUAL) 76 % (42-75)
[2020-03-15 06:34] LABS: <PLATELET ESTIMATE> ADEQUATE; <PLT MORPHOLOGY> NORMAL PLT MORPH; EOS#(MANUAL) 0.49 x10^3/uL (0.0-0.4); EOS% (MANUAL) 3 % (1-7); MYELOCYTES# (MANUAL) 0.32 x10^3/uL (0-0); MYELOCYTES% (MANUAL) 2 % (0-0); TOXIC GRAN 1+
[2020-03-15 06:36] LABS: ANISOCYTOSIS 1+; OVALOCYTES 1+
[2020-03-15 06:39] LABS: CRENATED 1+
[2020-03-15 07:38] VITALS: BP 100/63
[2020-03-15] MEDS ORDERED: SODIUM CHLORIDE 1 GM TABLET PO SCH (11:30)
[2020-03-15] MEDS: metroNIDAZOLE 500 MG TABLET PO SCH ×2 (11:33→20:24)
[2020-03-15] MEDS: AMOXICILLIN 500 MG CAPSULE PO SCH ×2 (11:33→20:24)
[2020-03-15] MEDS ORDERED: FUROSEMIDE 20 MG/2 ML IV ONE (12:00)
[2020-03-15 14:30] VITALS: BP 103/64
[2020-03-15 15:31] LABS: ANION GAP 9 mmol/L (5-15); CALCIUM 7.4 mg/dL (8.5-10.1); CHLORIDE 97 mmol/L (98-107)
[2020-03-15 15:37] LABS: CREATININE 1.31 mg/dL (0.55-1.02)
[2020-03-15 20:19] VITALS: BP 104/62
[2020-03-15] MEDS: LORazepam 1MG TABLET PO PRN (20:30)
[2020-03-15] MEDS: DIPHENHYDRAMINE 25 MG CAPSULE PO PRN (20:30)
[2020-03-16 02:00] VITALS: BP 117/65
[2020-03-16] MEDS: PANTOPRAZOLE 40MG TABLET PO SCH (04:13)
[2020-03-16] MEDS: metroNIDAZOLE 500 MG TABLET PO SCH ×2 (04:13→12:05)
[2020-03-16 05:00] LABS: MEAN CORPUSCULAR HEMOGLOBIN 32.1 pg (27.0-34.8); MEAN CORPUSCULAR HGB CONC 33.1 g/dL (32.4-35.8); MEAN PLATELET VOLUME 7.3 fL (7.4-10.4); PLATELET COUNT 166 x10^3/uL (130-400); RED BLOOD COUNT 2.62 x10^6/uL (3.82-5.3); RED CELL DISTRIBUTION WIDTH 17.4 % (9.6-15.2)
[2020-03-16 05:07] LABS: ANION GAP 8 mmol/L (5-15); CALCIUM 7.2 mg/dL (8.5-10.1); CHLORIDE 96 mmol/L (98-107)
[2020-03-16 05:37] LABS: MD YES
[2020-03-16 05:39] LABS: ANISOCYTOSIS 1+; EOS#(MANUAL) 0.38 x10^3/uL (0.0-0.4); EOS% (MANUAL) 2 % (1-7); LYMPH#(MANUAL) 2.63 x10^3/uL (1-3.4); LYMPHS% (MANUAL) 14 % (22-44); MONOS#(MANUAL) 1.13 x10^3/uL (0.3-2.7); MONOS% (MANUAL) 6 % (2-9); MYELOCYTES# (MANUAL) 0.38 x10^3/uL (0-0); MYELOCYTES% (MANUAL) 2 % (0-0); OVALOCYTES 1+; POLYCHROMASIA 1+; SEG#(MANUAL) 14.29 x10^3/uL (1.8-6.8); SEGS% (MANUAL) 76 % (42-75)
[2020-03-16 05:40] LABS: <PLATELET ESTIMATE> ADEQUATE; <PLT MORPHOLOGY> NORMAL PLT MORPH
[2020-03-16 06:38] VITALS: BP 96/56
[2020-03-16] MEDS ORDERED: POTASSIUM CHLORIDE 20 MEQ TAB.ER.PRT PO ONE ×2 (07:00→12:30)
[2020-03-16] MEDS ORDERED: ALBUMIN HUMAN 25% 100 ML IV ONE (07:00)
[2020-03-16] MEDS ORDERED: FUROSEMIDE 20 MG/2 ML IV ONE (07:00)
[2020-03-16] MEDS: AMOXICILLIN 500 MG CAPSULE PO SCH (09:11)
[2020-03-16 12:13] VITALS: BP 103/64
[2020-03-16] MEDS ORDERED: LIDOCAINE 1%, 10ML ONE (13:00)
[2020-03-16] MEDS: METRONIDAZOLE PMX 500MG/100ML 100 ML IV SCH ×2 (14:32→20:21)
[2020-03-16] MEDS: CEFTRIAXONE PMX 2GM/50ML 50 ML IVPB SCH (15:51)
[2020-03-16 18:32] VITALS: BP 101/63
[2020-03-16] MEDS: LORazepam 1MG TABLET PO PRN (20:42)
[2020-03-16] MEDS: DIPHENHYDRAMINE 25 MG CAPSULE PO PRN (20:42)
[2020-03-17 01:47] VITALS: BP 102/60
[2020-03-17] MEDS ORDERED: POTASSIUM CHLORIDE 20 MEQ TAB.ER.PRT PO ONE (04:00)
[2020-03-17] MEDS ORDERED: ACETAMINOPHEN 325 MG TABLET PO PRN (04:00)
[2020-03-17 04:09] LABS: BASOPHILS % (AUTO) 0 % (0-1); EOSINOPHILS % (AUTO) 2 % (1-7); LYMPHOCYTES % (AUTO) 12 % (22-44); MEAN CORPUSCULAR HEMOGLOBIN 32.6 pg (27.0-34.8); MEAN CORPUSCULAR HGB CONC 33.7 g/dL (32.4-35.8); MEAN PLATELET VOLUME 7.7 fL (7.4-10.4); MONOCYTES % (AUTO) 6 % (2-9); NEUTROPHILS % (AUTO) 79 % (42-75); PLATELET COUNT 127 x10^3/uL (130-400); RED BLOOD COUNT 2.58 x10^6/uL (3.82-5.3); RED CELL DISTRIBUTION WIDTH 17.1 % (9.6-15.2)
[2020-03-17] MEDS: METRONIDAZOLE PMX 500MG/100ML 100 ML IV SCH ×3 (04:15→21:16)
[2020-03-17 04:18] LABS: ALANINE AMINOTRANSFERASE 37 U/L (12-78); ALBUMIN 1.7 g/dL (3.4-5.0); ANION GAP 5 mmol/L (5-15); CALCIUM 7.4 mg/dL (8.5-10.1); CHLORIDE 103 mmol/L (98-107)
[2020-03-17 04:21] LABS: ALKALINE PHOSPHATASE 190 U/L (45-117)
[2020-03-17 04:25] LABS: CREATININE 1.24 mg/dL (0.55-1.02); TOTAL PROTEIN 4.4 g/dL (6.4-8.2)
[2020-03-17 04:27] LABS: MD SCAN
[2020-03-17] MEDS: PANTOPRAZOLE 40MG TABLET PO SCH (05:20)
[2020-03-17 06:57] VITALS: BP 99/62
[2020-03-17 12:08] VITALS: BP 104/65
[2020-03-17] MEDS: CEFTRIAXONE PMX 2GM/50ML 50 ML IVPB SCH (16:16)
[2020-03-17 19:05] VITALS: BP 99/61
[2020-03-17] MEDS: LORazepam 1MG TABLET PO PRN (21:16)
[2020-03-17] MEDS: DIPHENHYDRAMINE 25 MG CAPSULE PO PRN (21:16)
[2020-03-17 21:18] VITALS: BP 107/64
[2020-03-18 01:12] VITALS: BP 102/64
[2020-03-18 04:24] LABS: MEAN CORPUSCULAR HEMOGLOBIN 32.6 pg (27.0-34.8); MEAN CORPUSCULAR HGB CONC 33.4 g/dL (32.4-35.8); MEAN PLATELET VOLUME 7.9 fL (7.4-10.4); PLATELET COUNT 137 x10^3/uL (130-400); RED BLOOD COUNT 2.47 x10^6/uL (3.82-5.3); RED CELL DISTRIBUTION WIDTH 16.6 % (9.6-15.2)
[2020-03-18 04:35] LABS: ALANINE AMINOTRANSFERASE 33 U/L (12-78); ALBUMIN 1.6 g/dL (3.4-5.0); ANION GAP 7 mmol/L (5-15); CALCIUM 7.3 mg/dL (8.5-10.1); CHLORIDE 102 mmol/L (98-107); CREATININE 1.08 mg/dL (0.55-1.02)
[2020-03-18 04:37] LABS: ALKALINE PHOSPHATASE 188 U/L (45-117); TOTAL PROTEIN 4.4 g/dL (6.4-8.2)
[2020-03-18 04:40] LABS: BILIRUBIN,TOTAL 17.3 mg/dL (0.2-1.0)
[2020-03-18] MEDS: METRONIDAZOLE PMX 500MG/100ML 100 ML IV SCH ×3 (05:01→21:00)
[2020-03-18] MEDS: PANTOPRAZOLE 40MG TABLET PO SCH (05:01)
[2020-03-18 05:48] LABS: MD YES
[2020-03-18 05:51] LABS: <PLATELET ESTIMATE> ADEQUATE; <PLT MORPHOLOGY> NORMAL PLT MORPH; ANISOCYTOSIS 1+; EOS#(MANUAL) 0.15 x10^3/uL (0.0-0.4); EOS% (MANUAL) 1 % (1-7); LYMPHS% (MANUAL) 13 % (22-44); METAMYELOCYTES# (MANUAL) 0.15 x10^3/uL (0-0); METAMYELOCYTES% (MANUAL) 1 % (0-1); MONOS#(MANUAL) 0.73 x10^3/uL (0.3-2.7); MONOS% (MANUAL) 5 % (2-9); MYELOCYTES# (MANUAL) 0.15 x10^3/uL (0-0); MYELOCYTES% (MANUAL) 1 % (0-0); OVALOCYTES 1+; POLYCHROMASIA 1+; SEG#(MANUAL) 11.53 x10^3/uL (1.8-6.8); SEGS% (MANUAL) 79 % (42-75)
[2020-03-18 08:13] VITALS: BP 93/56
[2020-03-18 13:34] VITALS: BP 96/59
[2020-03-18] MEDS: CEFTRIAXONE PMX 2GM/50ML 50 ML IVPB SCH (16:50)
[2020-03-18] MEDS ORDERED: SIMETHICONE 80 MG CHEW TAB PO PRN (18:30)
[2020-03-18 19:17] VITALS: BP 104/65
[2020-03-18] MEDS: LORazepam 1MG TABLET PO PRN (21:00)
[2020-03-18] MEDS: DIPHENHYDRAMINE 25 MG CAPSULE PO PRN (21:00)
[2020-03-18] MEDS: POTASSIUM ACID PHOSPHATE 500 MG TABLET.SOL PO SCH (21:00)
[2020-03-19 01:04] VITALS: BP 92/55
[2020-03-19] MEDS: POTASSIUM ACID PHOSPHATE 500 MG TABLET.SOL PO SCH ×2 (03:14→09:26)
[2020-03-19] MEDS: METRONIDAZOLE PMX 500MG/100ML 100 ML IV SCH ×2 (05:14→14:30)
[2020-03-19] MEDS: PANTOPRAZOLE 40MG TABLET PO SCH (05:14)
[2020-03-19 06:06] LABS: MEAN CORPUSCULAR HGB CONC 33.5 g/dL (32.4-35.8); MEAN PLATELET VOLUME 7.8 fL (7.4-10.4); PLATELET COUNT 128 x10^3/uL (130-400); RED BLOOD COUNT 2.32 x10^6/uL (3.82-5.3); RED CELL DISTRIBUTION WIDTH 16.3 % (9.6-15.2)
[2020-03-19 06:08] LABS: ANION GAP 6 mmol/L (5-15); CALCIUM 7.4 mg/dL (8.5-10.1); CHLORIDE 105 mmol/L (98-107); CREATININE 1.05 mg/dL (0.55-1.02)
[2020-03-19 06:34] LABS: MD YES
[2020-03-19 06:35] LABS: BANDS%(MANUAL) 3 % (0-7); BASOS#(MANUAL) 0.13 x10^3/uL (0-0.1); BASOS% (MANUAL) 1 % (0-1); EOS#(MANUAL) 0.26 x10^3/uL (0.0-0.4); EOS% (MANUAL) 2 % (1-7); LYMPH#(MANUAL) 1.45 x10^3/uL (1-3.4); LYMPHS% (MANUAL) 11 % (22-44); MONOS#(MANUAL) 0.66 x10^3/uL (0.3-2.7); MONOS% (MANUAL) 5 % (2-9); MYELOCYTES# (MANUAL) 0.13 x10^3/uL (0-0); MYELOCYTES% (MANUAL) 1 % (0-0); SEG#(MANUAL) 10.16 x10^3/uL (1.8-6.8); SEGS% (MANUAL) 77 % (42-75)
[2020-03-19 06:36] LABS: ANISOCYTOSIS 1+; OVALOCYTES 1+; POLYCHROMASIA 1+
[2020-03-19 06:45] VITALS: BP 97/64
[2020-03-19 07:25] LABS: <PLATELET ESTIMATE> DECREASED; <PLT MORPHOLOGY> NORMAL PLT MORPH
[2020-03-19] MEDS ORDERED: LIDOCAINE 1%, 10ML ONE (08:24)
[2020-03-19] MEDS ORDERED: METR500T PO (15:48)
[2020-03-19] MEDS ORDERED: PANT40TA6 PO (15:48)
[2020-03-19] MEDS ORDERED: CEFD300C37 PO (15:48)
[2020-03-19] MEDS ORDERED: CEFDINIR 300 MG CAPSULE PO SCH (21:00)
[2020-03-19] MEDS ORDERED: metroNIDAZOLE 500 MG TABLET PO SCH (22:00)
== END 2020-03-19 16:32 | disposition home or self-care (01) | DRG 871 ==
LOC: ED 12:17 → EDIP 16:15 → 4WST 03-12 16:43
PROVIDERS: ADMIT Internal Medicine; ATTEND Internal Medicine
PROC: 0W9G3ZZ Drainage of Peritoneal Cavity, Percutaneous Approach (ICD-10-PCS; 2020-03-16)
PROC: 0W9G3ZZ Drainage of Peritoneal Cavity, Percutaneous Approach (ICD-10-PCS; principal; 2020-03-19)
DX: A41.9 Sepsis, unspecified organism (principal); N17.0 Acute kidney failure with tubular necrosis; D68.9 Coagulation defect, unspecified; E87.1 Hypo-osmolality and hyponatremia; K76.6 Portal hypertension; D64.9 Anemia, unspecified; D69.6 Thrombocytopenia, unspecified; E83.39 Other disorders of phosphorus metabolism; E87.6 Hypokalemia; E88.09 Other disorders of plasma-protein metabolism, not elsewhere classified; F10.20 Alcohol dependence, uncomplicated; K52.9 Noninfective gastroenteritis and colitis, unspecified; K70.11 Alcoholic hepatitis with ascites; K70.31 Alcoholic cirrhosis of liver with ascites; K70.40 Alcoholic hepatic failure without coma; K76.0 Fatty (change of) liver, not elsewhere classified; Z90.49 Acquired absence of other specified parts of digestive tract
CPT/HCPCS: 36415; 82042; 84145; 87046; 89051; 96365; 99285; J3490; J7042; J7121; 49083; 74177; 76705; 80048; 80053; 81001; 82140; 82570; 83605; 83690; 83735; 83930; 84100; 84295; 84300; 84703; 85014; 85018; 85025; 85610; 85730; 87040; 87070; 87075; 87086; 87205; 87324; 93005; G0378; J0696; J3411; J3475; J3480; P9047; Q9967; C9113; J1940; J7030; J7040; Q0163